=== PATIENT | male | born 1965 | race Native Hawaiian/Other Pacific Islander ===

== ENCOUNTER 2016-09-13 10:35 | Outpatient (CLI) | payer OTHER | END 2016-09-13 19:22 | disposition home or self-care (01) | LOC: NM 10:35 | DX: R10.13 Epigastric pain (principal); R10.11 Right upper quadrant pain | CPT/HCPCS: A9537 ==

== ENCOUNTER 2016-09-26 07:34 | Day surgery (SDC) | payer OTHER ==
[~2016-09-26] VITALS: Ht 175.3 cm; Wt 90.7 kg
== END 2016-09-26 10:05 | disposition home or self-care (01) ==
LOC: OR 07:34
PROC: 0DB68ZZ Excision of Stomach, Via Natural or Artificial Opening Endoscopic (ICD-10-PCS; principal; 2016-09-26)
DX: K29.50 Unspecified chronic gastritis without bleeding (principal); K44.9 Diaphragmatic hernia without obstruction or gangrene; R10.13 Epigastric pain
CPT/HCPCS: J2704

== ENCOUNTER 2017-01-01 08:43 | Day surgery (SDC) | payer OTHER | END 2017-01-01 13:00 | disposition home or self-care (01) | LOC: OR 08:43 | PROC: 0DBP8ZZ Excision of Rectum, Via Natural or Artificial Opening Endoscopic (ICD-10-PCS; principal; 2017-01-01) | DX: K62.1 Rectal polyp (principal); Z12.11 Encounter for screening for malignant neoplasm of colon; R10.84 Generalized abdominal pain | CPT/HCPCS: J2704 ==